=== PATIENT | female | born 1995 | race Caucasian/White ===

== ENCOUNTER 2023-10-18 10:39 | Day surgery (SDC) | payer BC ==
[~2023-10-18] VITALS: Ht 160 cm; Wt 81.6 kg
[2023-10-18 11:53] LABS: HCG,QUAL RESULT NEGATIVE (NEGATIVE)
[2023-10-18 12:29] VITALS: O2SAT 100
[2023-10-18] MEDS ORDERED: ACETAMINOPHEN I.V. 1000 MG 100 ML IV ONE (14:56)
[2023-10-18] MEDS ORDERED: HYDROmorphone 2 MG/ML VIAL IVP PRN (16:00)
[2023-10-18] MEDS ORDERED: LR 1,000 ML IV SCH (16:00)
[2023-10-18] MEDS ORDERED: KETOROLAC TROMETHAMINE 30 MG VIAL IVP PRN (16:00)
[2023-10-18] MEDS ORDERED: ONDANSETRON HCL 4 MG/2 ML VIAL IVP PRN (16:00)
[2023-10-18] MEDS ORDERED: fentaNYL CITRATE/PF 100 MCG/2 ML AMP ONE (17:05)
[2023-10-18] MEDS ORDERED: NS IRRIG SOLN 1000 ML IR ONE (17:05)
[2023-10-18] MEDS ORDERED: SEVOFLURANE 15 MIN GAS INH ONE (17:05)
[2023-10-18] MEDS ORDERED: ROCURONIUM BROMIDE 10 MG/ML (ZEMURON) ONE (17:05)
[2023-10-18] MEDS ORDERED: LIDOCAINE 2%, 20 ML MDV ONE (17:05)
[2023-10-18] MEDS ORDERED: WATER FOR IRRIGATION,STERILE 1,000 ML IRRIG.SOLN IR ONE (17:05)
[2023-10-18] MEDS ORDERED: ONDANSETRON HCL 4 MG/2 ML VIAL ONE (17:05)
[2023-10-18] MEDS ORDERED: LIDOCAINE/EPI 1% 1:100000 20 ML VIAL ONE (17:05)
[2023-10-18] MEDS ORDERED: PROPOFOL 200MG/ 20ML VIAL (DIPRIVAN) IV ONE (17:05)
[2023-10-18] MEDS ORDERED: GLYCOPYRROLATE 0.2 MG/ML VIAL ONE (17:05)
[2023-10-18] MEDS ORDERED: NS 1000 ML IV.SOLN IV ONE (17:05)
[2023-10-18] MEDS ORDERED: MIDAZOLAM HCL 5 MG/ML VIAL (VERSED) IV ONE (17:05)
[2023-10-18] MEDS ORDERED: LR 1,000 ML IV.SOLN IV ONE (17:05)
[2023-10-18] MEDS ORDERED: DEXAMETHASONE SOD PHOSPHATE 4 MG/ML VIAL ONE (17:05)
[2023-10-18] MEDS ORDERED: HYDROmorphone 1 MG/ML INJ. CARTRIDGE ONE (17:34)
[2023-10-18] MEDS: HYDROmorphone 1 MG/ML INJ. CARTRIDGE IVP PRN (17:40)
[2023-10-18 18:48] VITALS: BP_SYST 107; PULSE 80; RESP 18
== END 2023-10-18 19:20 | disposition home or self-care (01) ==
LOC: SDS 10:39 → SMU 10:47 → SDS 19:20
PROVIDERS: ATTEND Otolaryngology
DX: D38.5 Neoplasm of uncertain behavior of other respiratory organs (principal); J34.2 Deviated nasal septum; J32.2 Chronic ethmoidal sinusitis; F33.9 Major depressive disorder, recurrent, unspecified; J30.1 Allergic rhinitis due to pollen; E66.3 Overweight; H92.01 Otalgia, right ear; H90.11 Conductive hearing loss, unilateral, right ear, with unrestricted hearing on the contralateral side; J45.20 Mild intermittent asthma, uncomplicated; Z68.31 Body mass index [BMI] 31.0-31.9, adult; Z79.899 Other long term (current) drug therapy; Z83.3 Family history of diabetes mellitus; Z81.8 Family history of other mental and behavioral disorders
CPT/HCPCS: 31255; 30520; 30140; 31256; 84703; 88304; 88305; 88311; J1100; J3490; J2250; J2405; J2704; J3010; J1170; J7120; J7030; J0131; J2001